=== PATIENT | male | born 1990 | race Caucasian/White ===

== ENCOUNTER 2018-12-16 14:17 | Emergency (ER) | payer MEDICAID ==
[~2018-12-16] VITALS: Ht 172.7 cm; Wt 83.9 kg
[2018-12-16 14:17] VITALS: BP_SYST 131
--- NOTE | 2018-12-16 14:17 | NUR ---
Patient placed in ER Bed 5, awaiting MD for ER evaluation
--- NOTE | 2018-12-16 14:17 | NUR ---
TPatient triaged and placed in waiting room. VSS and patient appears in no acute distress at this time. Accompanied by FAMILY, awaiting available bed, and MD notified of need for MSE.
--- NOTE | 2018-12-16 14:25 | NUR ---
Dr Townsend at bedside for ER evaluation
--- NOTE | 2018-12-16 14:30 | NUR ---
Patient comes to ER in personal vehicle, accompanied by spouse, AOx4, verbal and ambulatory. Patient comes with complaint of chest pain 09/14. Patient is able to relieve pain with positioning. Patient denies SOB. No other complaint or injury at this time.
[2018-12-16] MEDS ORDERED: ASPIRIN 81 MG TAB.CHEW PO ONE (15:45)
[2018-12-16] MEDS ORDERED: NITROGLYCERIN 1 INCH (GM) OINT. TP ONE (15:45)
[2018-12-16] MEDS ORDERED: IBUPROFEN 800 MG TABLET PO ONE (16:00)
--- NOTE | 2018-12-16 16:20 | NUR ---
Patient given written and verbal discharge instructions and verbalizes understanding. ER MD discussed with patient the results and treatment provided. Patient in stable condition. ID arm band removed. Rx of motrin given. Patient educated on pain management and to follow up with PMD. Pain Scale 2/10. Opportunity for questions provided and answered. Medication side effect fact sheet provided.
[2018-12-16 16:25] VITALS: BP_SYST 131
== END 2018-12-16 16:20 | disposition home or self-care (01) ==
LOC: SED 14:17
DX: R07.89 Other chest pain (principal); R03.0 Elevated blood-pressure reading, without diagnosis of hypertension
CPT/HCPCS: 71045; 93005; 99283; 99284

== ENCOUNTER 2019-01-12 18:13 | Emergency (ER) | payer MEDICAID ==
[~2019-01-12] VITALS: Ht 172.7 cm; Wt 86.2 kg
[2019-01-12 18:29] VITALS: BP_SYST 140
[2019-01-12 20:29] VITALS: BP_SYST 140
== END 2019-01-12 20:29 | disposition home or self-care (01) ==
LOC: SED 18:13
DX: J02.8 Acute pharyngitis due to other specified organisms (principal); B97.89 Other viral agents as the cause of diseases classified elsewhere; R05 Cough; R03.0 Elevated blood-pressure reading, without diagnosis of hypertension
CPT/HCPCS: 36415; 86403; 87081; 99283

== ENCOUNTER 2022-02-15 12:33 | Emergency (ER) | payer MEDICAID ==
[~2022-02-15] VITALS: Ht 172.7 cm; Wt 95.3 kg
[2022-02-15 13:02] VITALS: BP_SYST 139
[2022-02-15 13:42] LABS: BASOPHILS # (AUTO) 0.1 K/uL (0.0-0.2); BASOPHILS % (AUTO) 0.9 % (0.0-2.0); EOSINOPHILS # (AUTO) 0.1 K/uL (0.0-0.4); EOSINOPHILS % (AUTO) 0.9 % (0.0-4.0); HEMATOCRIT 42.7 % (36-54); LYMPHOCYTES # (AUTO) 1.9 K/uL (1.0-5.5); LYMPHOCYTES % (AUTO) 31.8 % (20.5-51.5); MEAN CORPUSCULAR HEMOGLOBIN 30 pg (27-31); MEAN CORPUSCULAR HGB CONC 35 % (32-36); MEAN CORPUSCULAR VOLUME 85 fL (79.0-98.0); MONOCYTES # (AUTO) 0.3 K/uL (0.0-1.0); MONOCYTES % (AUTO) 5.8 % (1.7-9.3); NEUTROPHILS # (AUTO) 3.6 K/uL (1.8-7.7); NEUTROPHILS % (AUTO) 60.6 % (40.0-70.0); PLATELET COUNT (AUTO) 223 K/uL (130-430); RED BLOOD CELL COUNT(AUTO) 5.05 MIL/uL (4.2-6.2); RED CELL DISTRIBUTION WIDTH 12.8 % (9.0-15.0)
[2022-02-15 14:12] LABS: ANION GAP 6 (5-15); CALCIUM 9.2 mg/dL (8.4-11.0); CHLORIDE 105 mmol/L (98-107); GLUCOSE 117 mg/dL (70-99); UREA NITROGEN, BLOOD 15 mg/dL (8-21)
[2022-02-15 14:23] LABS: ALANINE AMINOTRANSFERASE 52 U/L (12-78); ALBUMIN 3.9 g/dL (3.4-4.8); ASPARTATE AMINOTRANSFERASE 24 U/L (10-37); GFR AFRICAN AMERICAN 89 mL/min (>90); TOTAL BILIRUBIN 0.7 mg/dL (0.0-1.0)
[2022-02-15] MEDS ORDERED: IBUP-1969 PO (14:51)
[2022-02-15 15:00] VITALS: BP_SYST 131
== END 2022-02-15 15:00 | disposition home or self-care (01) ==
LOC: SED 12:33
DX: M94.0 Chondrocostal junction syndrome [Tietze] (principal); R07.89 Other chest pain; R07.81 Pleurodynia; Z79.899 Other long term (current) drug therapy
CPT/HCPCS: 36415; 71045; 80053; 84484; 85025; 93005; 99285